=== PATIENT | female | born 1965 | race Caucasian/White ===

== ENCOUNTER 2018-06-24 13:54 | Outpatient (CLI) | payer BC | END 2018-06-24 13:55 | disposition home or self-care (01) | LOC: BICMAMMO 13:54 | PROVIDERS: ATTEND Internal Medicine Hematology & Oncology | DX: Z08 Encounter for follow-up examination after completed treatment for malignant neoplasm (principal); Z85.3 Personal history of malignant neoplasm of breast | CPT/HCPCS: 77066; G0279 ==

== ENCOUNTER 2019-06-29 13:47 | Outpatient (CLI) | payer BC ==
--- NOTE | 2019-06-29 14:48 | MMO ---
Bilateral MAMMO Bilat Diag [facility]. CLINICAL HISTORY: Patient is 54 years old and is seen for diagnostic exam. The patient has the following family history of breast cancer: sister, at age 51. The patient has a history of malignant (generic) in the left breast at age 51. The patient has a history of left Ultrasound Guided Core Biopsy at age 51 - malignant and left Lumpectomy in June, - malignant. VIEWS: The views performed were: bilateral craniocaudal with tomosynthesis; bilateral mediolateral oblique with tomosynthesis; and bilateral mediolateral with tomosynthesis. FILMS COMPARED: The present examination has been compared to prior imaging studies performed at 06/24/2018, and at [facility] on 06/18/2016. This study has been interpreted with the assistance of computer-aided detection. MAMMOGRAM FINDINGS: The breasts are heterogeneously dense, which could obscure a lesion on mammography. Right breast: There are no suspicious masses, calcifications or areas of architectural distortion. Left breast: There are stable post-operative changes. There are no suspicious masses, suspicious calcifications, or new areas of architectural distortion. IMPRESSION: THERE IS NO MAMMOGRAPHIC EVIDENCE OF MALIGNANCY. A ROUTINE FOLLOW-UP MAMMOGRAM IN 1 YEAR IS RECOMMENDED. THE RESULTS OF THIS EXAM WERE SENT TO THE PATIENT. ACR BI-RADS Category 2 - Benign finding MAMMOGRAPHY NOTE: 1. A negative mammogram report should not delay a biopsy if a dominant of clinically suspicious mass is present. 2. Approximately 10% to 15% of breast cancers are not detected by mammography. 3. Adenosis and dense breasts may obscure an underlying neoplasm. Reported by: JOSE DAVID CASEY MD Electonically Signed: [id number]
--- NOTE | 2019-06-29 15:15 | BD ---
EXAM: Bone densitometry using DEXA HISTORY: 54 yo female. Screening for postmenopausal osteoporosis FINDINGS: L1--bone mineral density 0.988 g/sq cm; T score 0.0 ; Z score 0.9 L2--bone mineral density 1.016 g/sq cm; T score -0.1 ; Z score 0.9 L3--bone mineral density 1.017 g/sq cm; T score -0.6 ; Z score 0.4 L4--bone mineral density 0.936 g/sq cm; T score -1.1 ; Z score -0.1 Total L1-L4--bone mineral density 0.985 g/sq cm; T score -0.6 ; Z score 0.4 Left femoral neck--bone mineral density0.794; T score -0.5 ; Z score 0.5 Total proximal left femur--bone mineral density 1.132; T score 1.6 ; Z score 2.2 IMPRESSION: Normal BMD
== END 2019-06-29 13:48 | disposition home or self-care (01) ==
LOC: BICMAMMO 13:47
PROVIDERS: ATTEND Internal Medicine Hematology & Oncology
DX: Z08 Encounter for follow-up examination after completed treatment for malignant neoplasm (principal); Z85.3 Personal history of malignant neoplasm of breast; Z13.820 Encounter for screening for osteoporosis
CPT/HCPCS: 77066; 77080; G0279

== ENCOUNTER 2020-07-02 10:19 | Outpatient (CLI) | payer BC ==
--- NOTE | 2020-07-02 11:00 | MMO ---
Bilateral MAMMO Bilat Diag [facility]. CLINICAL HISTORY: Patient is 55 years old and is seen for diagnostic exam. The patient has the following family history of breast cancer: sister, at age 51. The patient has a history of malignant (generic) in the left breast at age 51. The patient has a history of left Ultrasound Guided Core Biopsy at age 51 - malignant and left Lumpectomy in June, - malignant. VIEWS: The views performed were: bilateral craniocaudal with tomosynthesis; bilateral mediolateral oblique with tomosynthesis; and bilateral mediolateral with tomosynthesis. FILMS COMPARED: The present examination has been compared to prior imaging studies performed at [facility] on 06/22/2017, 06/24/2018 and 06/29/2019, and at [facility] on 06/18/2016. This study has been interpreted with the assistance of computer-aided detection. MAMMOGRAM FINDINGS: The breasts are heterogeneously dense, which could obscure a lesion on mammography. There is a stable area of skin thickening, a stable area of trabecular thickening, a stable area of architectural distortion, a stable post-surgical scar and a stable biopsy clip seen in the left breast. There are no suspicious masses, suspicious calcifications, or new areas of architectural distortion. IMPRESSION: THERE IS NO MAMMOGRAPHIC EVIDENCE OF MALIGNANCY. THE PATIENT WAS INFORMED OF THE EXAM RESULTS. A ROUTINE FOLLOW-UP MAMMOGRAM IN 1 YEAR IS RECOMMENDED. THE RESULTS OF THIS EXAM WERE SENT TO THE PATIENT. ACR BI-RADS Category 2 - Benign finding MAMMOGRAPHY NOTE: 1. A negative mammogram report should not delay a biopsy if a dominant of clinically suspicious mass is present. 2. Approximately 10% to 15% of breast cancers are not detected by mammography. 3. Adenosis and dense breasts may obscure an underlying neoplasm. Reported by: DONI LEWIS MD Electonically Signed: [id number]
== END 2020-07-02 10:20 | disposition home or self-care (01) ==
LOC: BICMAMMO 10:19
PROVIDERS: ATTEND Internal Medicine Hematology & Oncology
DX: Z08 Encounter for follow-up examination after completed treatment for malignant neoplasm (principal); Z85.3 Personal history of malignant neoplasm of breast; Z80.3 Family history of malignant neoplasm of breast
CPT/HCPCS: 77066; G0279